=== PATIENT | male | born 1945 | race Caucasian/White ===

== ENCOUNTER 2019-11-03 14:27 | Emergency (ER) | payer OTHER, SELFPAY ==
--- NOTE | ~2019-11-03 | XR_ITS ---
EXAMINATION: XR wrist LT min 3V DATE: 11/03/2019 14:59 INDICATION: Left wrist swelling. Fall. TECHNIQUE: 4 views of left wrist were obtained. COMPARISON: None. FINDINGS: There is a nondisplaced fracture of dorsal pole of triquetrum. There is moderate osteoarthr itis of triscaphe joint and mild osteoarthritis of first carpometacarpal joint. There is dorsal wrist soft tissue swelling. IMPRESSION: 1. Nondisplaced fracture of dorsal pole of triquetrum. 2. Polyarticular osteoarthritis. Reviewed, dictated and finalized at location A.
--- NOTE | 2019-11-03 14:35 | ED.GENADULT ---
HPI - General Adult General Chief complaint: Extremity Injury, Upper Stated complaint: left wrist injury Time Seen by Provider: 11/03/19 14:57 Source: patient and RN notes reviewed Mode of arrival: ambulatory Limitations: no limitations History of Present Illness HPI narrative: 74-year-old male presents with concern for left wrist pain. Reports yesterday he tripped and fell catching himself on his outstretched wrist. He reports he used ice, immobilization, compression. Reports bruising to the dorsal aspect of the left hand and wrist area. Denies any weakness, numbness in the digits. Reports worsening pain with wrist rotation complaint: Wrist pain Related Data Home Medications Medication Instructions Recorded Confirmed Lexapro 11/03/19 simvastatin 40 mg PO DAILY 11/03/19 11/03/19 Allergies Allergy/AdvReac Type Severity Reaction Status Date / Time No Known Allergies Allergy Verified 11/03/19 14:50 Review of Systems Review of Systems: Narrative: CONSTITUTIONAL: Denies malaise, chills, sweats, or fever. CARDIOVASCULAR: Denies chest pain, palpitations RESPIRATORY: Denies dyspnea. SKIN: Reports abrasions MUSCULOSKELETAL: reports left wrist pain, pain with wrist rotation NEUROLOGIC: Denies numbness, weakness All systems reviewed & are unremarkable except as noted in HPI and below PMFSH Comments At time of signature, agree with nursing past medical, surgical, social and family history. There is no relevant family history pertinent to the presenting complaint Exam Narrative: Exam Narrative: GENERAL: Well-appearing, well-nourished, and in no acute distress. HEAD: Normocephalic, atraumatic. EYES: PERRLA, conjunctivae clear NECK: Supple. CHEST: Speaks in full sentences. No respiratory distress. HEART: Regular rate and rhythm. Normal and equal peripheral pulses. EXTREMITIES: Left wrist, digits left hand have normal strength and sensation, normal range of motion, pain with internal rotation. 5/5 strength with digit flexion and extension. Dorsal wrist hematoma noted. Normal sensation with sensitivity to light touch and pain. No open wounds, no skin tenting, no devitalized tissue or atrophy, no trophic changes, no obvious deformity, alignment normal, no point tenderness, nearby joints and structures intact. Distal pulses palpable and equal bilaterally, skin warm, dry, pink. Capillary refill less than 3 seconds. SKIN: Warm, dry, no rash. NEURO: Alert and oriented x3. PSYCH: Normal mood and affect Course Course Emergency Course: Patient is aware of diagnosis, understands and agrees to treatment plan. Anticipatory guidance given. Patient agrees to follow-up as directed and is aware of reasons to seek care at the emergency department. Portions of this record may have been created with voice recognition software Vital Signs Vital signs: Reviewed. Procedures Orthopedic Splinting/Casting Injury #1: Splinting/Casting Date: 11/03/19 Splinting/Casting Time: 15:12 Side: left Upper Extremity Injury Location: wrist Splint: customized in ED OCL: short arm Pre-Procedure Neuro Vascular Exam: normal Post-Procedure Neuro Vascular Exam: normal Medical Decision Making MDM Narrative Medical decision making narrative: Patients injury and pain is consistent with musculoskeletal etiology. No signs of neurological or vascular compromise on exam. Compartments and tissues are soft without signs of compartment syndrome. Pain is felt appropriate for further evaluation on an outpatient basis. Imaging Data My impression: Images reviewed, interpreted by radiologist, agree, see report. Radiologist's impression: EXAMINATION: XR wrist LT min 3V DATE: 11/03/2019 14:59 INDICATION: Left wrist swelling. Fall. TECHNIQUE: 4 views of left wrist were obtained. COMPARISON: None. FINDINGS: There is a nondisplaced fracture of dorsal pole of triquetrum. 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
[2019-11-03 14:50] VITALS: BP 131/78; PULSE 65; RESP 18; TEMP 37.1; O2SAT 99
== END 2019-11-03 15:28 | disposition home or self-care (01) ==
PROVIDERS: Emergency Provider Nurse Practitioner
DX: S62.115A Nondisplaced fracture of triquetrum [cuneiform] bone, left wrist, initial encounter for closed fracture (principal); W19.XXXA Unspecified fall, initial encounter
CPT/HCPCS: 29125; 73110; 99204; G0463